=== PATIENT | female | born 1955 | race Caucasian/White ===

== ENCOUNTER 2020-07-06 06:45 | Inpatient (IN) | payer MEDICARE, BC ==
[~2020-07-06] VITALS: Ht 157.5 cm; Wt 73.0 kg
[2020-07-21] MEDS ORDERED: SUCRALFATE1 GM PO (14:50)
[2020-07-21] MEDS ORDERED: FENOFIBRATE160 MG PO (14:51)
[2020-07-21] MEDS ORDERED: PANTOPRAZOLE SO40 MG (14:51)
[2020-07-21] MEDS ORDERED: FLONASE ALLERG9.9 ML NAS (14:52)
[2020-07-21] MEDS ORDERED: FISH OIL 1,0001 EAC2 PO (14:52)
[2020-07-21] MEDS ORDERED: PANTOPRAZOLE SO40 MG PO (14:53)
--- NOTE | 2020-08-03 09:30 | NUR ---
08/03/20 0930 Jinny Gardiner 0920-PATIENT ARRIVED TO PACU ON 6L MASK AWAKE DENIES PAIN OR NAUSEA. RR EVEN. PATIENT UNABLE TO MOVE TOES. SPINAL LEVEL OF T10. CHURCHILL CATHETER DRAINING CLEAR URINE. IVF INFUSING. 0928-PATIENT PLACED ON RA. DENIES PAIN OR NAUSEA. CLOSES EYES RR EVEN.
--- NOTE | 2020-08-03 10:27 | NUR ---
Patient to floor from surgery. Patient arrived alert and oriented x4. Vital signs stable, cpox intact. Patient denies pain at this time. Spinal resolving; level T10 at this time. Bed alarm intact. Hob elevated. Patient oriented to room and call light. Quijano intact, patent with clear dilute urine. Kaylan pad in place; scant yoni blood noted to pad. Small portion of vaginal packing noted. Patient reminded of spinal and safety measures. No needs at this time. Call light wihtin reach. at bedside.
--- NOTE | 2020-08-03 11:39 | NUR ---
Patient remains alert and oriented x4. Patient denies pain. Vaginal packing and stacy pad unchanged with no new drainage noted. Spinal resolving at L2. SCD;s intact. Patient reports she is doing well at this time. Lunch ordered. Quijano intact, patent with clear yellow urine noted. Encouraged patient to drink fluids. No needs at this time. Bed alarm intact.
--- NOTE | 2020-08-03 12:50 | NUR ---
Patient reports doing well. Patient denies pain. Lunch tolerated well. Quijano intact, patent with clear yellow urine. Vaginal packing intact, stacy pad unchanged with scant yoni blood noted. Spinal resolving still; at L3 level. No needs. IV patent. Bed alarm intact.
--- NOTE | 2020-08-03 13:33 | NUR ---
PATIENT IS LAYING IN BED. FRESH WATER GIVEN. VITALS AND I&OS ARE DONE AND DOCUMENTED. CALL LIGHT IS IN REACH. NO FURTHER NEEDS AT THIS TIME.
--- NOTE | 2020-08-03 14:19 | NUR ---
Patient resting in bed, a&ox4. Patient denies pain. Spinal resolving still; at L4 level. Quijano intact, patent and clear yellow urine. Vaginal packing intact, stacy pad unchanged-scant yoni red blood noted. Patient tolerated lunch well. Cpox intact, 97% on room air. No needs. Call light within reach.
--- NOTE | 2020-08-03 15:39 | NUR ---
In to check on patient to see if she is ready to walk. Pt reports her spinal is still resolving. Patient reports numbness in bottom of feet still. Told patient I will return in a while to check on her. Bed alarm remains intact.
--- NOTE | 2020-08-03 18:28 | NUR ---
Patient walked in hallway with SBA. Patient tolerated well. Back to bed. No needs at this time.
--- NOTE | 2020-08-03 18:32 | NUR ---
PATIENT IS SITTING UP IN BED WATCHING TV. FRESH WATER GIVEN. VITALS AND I&OS ARE DONE AND DOCUMENTED. CALL LIGHT IS IN REACH. NO FURTHER ASSISTANCE AT THIS TIME.
--- NOTE | 2020-08-03 20:26 | NUR ---
CALL LIGHT ANSWERED. pt C/O 08/27 PAIN IN MCKENNA AREA "IT'S WAKING UP". PRN PAIN MEDICATION ADMINISTERED WITH CRACKERS, ICE WATER REFILLED. SIDE EFFECTS AND MEDICATION INFORMATION PROVIDED. CALL LIGHT WITHIN REACH.
--- NOTE | 2020-08-03 21:11 | NUR ---
Pt awake, moves and repositions self in bed,. On room air, lungs clear bilat, abd distended, f/c patent, draining large amounts of urine. Scant amount of vaginal red drainage, vag packing in place. scds in place. IVF infusiing. c/o abd pain, medicated with scheduled Motrin. tolerating liquids and diet well, no emeis, pleasant and coop. had many questions, answered to her satisfaction. call light and fresh fluids at bedside, HOB elevated to her comfort
--- NOTE | 2020-08-04 00:24 | NUR ---
Awake, watching tv, no c/o pain, SCDS repositioned at her requets, f/c patent. IVF infusing
--- NOTE | 2020-08-04 05:24 | NUR ---
F/C DC'D AT 0515, TIP INTACT, PT AWARE OF POST VOID RESIDUALS CHECKS
--- NOTE | 2020-08-04 05:46 | NUR ---
Pt awakes easily, vag pack still in place, scant amount of red vaginal drainage present. f/c dc'd. pt aware of post void residuals checks. stated understanding. IS at bedside, scds off at her requests at this time. IVF infusing. walked hallways x1 this shift, down to short corridor and back. Tolerated well, tolerataing diet and fluids, has been medicated with 1 norco and 2 scheduled motrins with good pain relief. uses call light approriately
--- NOTE | 2020-08-04 07:25 | NUR ---
THIS CHANNEL ROUGHER NOTIFIED BY LIONEL OLVERA THAT SHE TOOK PATIENT TO THE BATHROOM. WENT TO CHECKED. PATIENT STATED SHE CHANGED UNDERWEAR AND PAD. STATED THAT SHE DID NOT LIKE THE FEELING AND SHE TOOK OFF THE PACKING. LIONEL BLUE AND LIONEL OLVERA NOTIFIED REGARDING THE PACKING. PATIENT IS BACK IN BED.
--- NOTE | 2020-08-04 07:34 | NUR ---
REPORT RECEIVED FROM LIONEL BLUE. PT UP TO RESTROOM AND WAS ABLE TO VOID 50ML YELLOW URINE. PT REMOVED VAGINAL PACKING STATING "I JUST FELT LIKE I HAD TO POOP SO I TOOK IT OUT." FRESH MCKENNA PAD IN PLACE. EDUCATION DONE WITH PT. PT VERBALIZES UNDERSTANDING. STAND BY ASSIST BACK TO BED. PREVIOUS MCKENNA PAD NOTED TO BED 20% SATURATED WITH RED DRAINAGE. PT DENIES PAIN AND NAUSEA. PT DENIES ADDITIONAL REQUESTS OR COMPALINTS. CALL LIGHT WITHIN REACH.
--- NOTE | 2020-08-04 08:25 | NUR ---
DR. LOPEZ IS AWARE THAT PATIENT PULLED HER OWN VAG PACKING.
--- NOTE | 2020-08-04 09:12 | NUR ---
MORNING ASSESSMENT AND MEDICATION DUE. PT REPORTS MD WAS TO BEDSIDE FOR ROUNDS. PT HAS YET TO HAVE FULL VOID, EDUCATION DONE WITH PT REGARDING NEED FOR VOID PRIOR TO DISCHARGE. PT VERBALIZES UNDERSTANDING. PT DENIES PAIN AND NAUSEA "EXCPET IT HURTS WHEN I GET UP FAST, BUT THAT WAS WHEN THE CATHETER WAS IN ME." IV SALINE LOCKED PER MD ORDER, ALCOHOL CAPS APPLIED. LUNG SOUNDS CLEAR. PT DEMONSTRATES USE OF I.S. REACHING 1250ML. SPINAL RESOLVED. ABDOMENT NOTED TO BE MILDY DISTENDED. PT CONFIRMS STATING "MY STOMACH IS SWOLLEN." MCKENNA PAD NOTED TO BE 10% SATURATED WITH RED DRAINAGE AT THIS TIME. ABDOMEN IS NOT TENDER TO TOUCH. PT UP TO RESTROOM WITH STAND BY ASSIST. PT VOIDS 250ML OF LIGHT PINK URINE. POST RESIDUAL BLADDER SCAN SHOWS 84ML LEFT IN BLADDER AFTER VOID. PT UP FOR SHOWER WITH ASSISTANCE FROM SAW BOSS. PT DENIES ADDITIONAL REQUESTS OR COMPLAINTS. CALL LIGHT WITHIN REACH. SAW BOSS AT BEDSIDE.
--- NOTE | 2020-08-04 10:08 | NUR ---
PT FINISHED WITH SHOWER. PT BACK TO BED AND RESTING WITH HEAD OF BED ELEVATED. PT DENIES PAIN AND NAUSEA AT THIS TIME. PT REPORTS SHE IS PASSING GAS. PT DENIES REQUESTS OR COMPLAINTS AT THIS TIME. CALL LIGHT WITHIN REACH. ICE WATER REFILLED. BED RAILS UP.
--- NOTE | 2020-08-04 12:42 | NUR ---
NOON ASSESSMENT DUE. ABDON, RN STATES SHE GOT PT UP TO RESTROOM AND PT HAS SMALL VOID WITH 600+ ML POST RESIDUAL NOTED IN BLADDER SCAN. PT REPORTS 3/10 ACHING PAIN AND REQUESTS IBUPROFEN. AFTERNOON MOTRIN GIVEN. PT ENCORUAGED TO VOID AGAIN. SBA UP TO RESTROOM AND VOIDS 300ML. POST RESIDUAL BLADDER SCAN SHOWS 474ML. ABDOMEN APPEARS TO HAVE INCREASED DISTENTION, NOW MODERATLY DISTENDED. PT PASSING LARGE AMOUNTS OF GAS. ABDOMEN CONTINUES TO BE SOFT TO TOUCH. MCKENNA PAD MOSTLY DRY. SCANT AMOUNT OF RED DRAINAGE NOTED ON MCKENNA PAD. PT PERFORMS SELF MCKENNA CARE. PT EATING LUNCH. ICE WATER REFILLED. CALL LIGHT WITHIN REACH. PTS AT BEDSIDE. BED RAILS UP. CALL LIGHT WIHTIN REACH.
--- NOTE | 2020-08-04 12:54 | NUR ---
DR. LOPEZ CALLED WITH UPDATE. NEW ORDRES GIVEN TO STRAIGHT CATH PT NOW AND PLACE PT ON 1600ML PO FLUID RESTRICTION. PO FLUIDS REMOVED FROM PTS BEDSIDE AND EDUCATION DONE WITH PT REGARDING FLUID RESTRICITON. PT VERBALIZES UNDERSTANDING.
--- NOTE | 2020-08-04 13:00 | NUR ---
Pt states she lives in [place] with her spouse Tobin. They live in a 1 story home with 1 step. They are retired, pt states they are active. She denies financial issues. Plans on dc to home with spouse. Denies any needs and denies any use of DME.
--- NOTE | 2020-08-04 13:26 | NUR ---
STRAIGHT CATH PERFORMED PER PROTOCOL BY ROGER FLOWERS. 700ML CLEAR YELLOW URINE OBTAINED FROM STRIGHT CATH. PER CARE PERFORMED. FRESH MCKENNA PAD AND UNDERWARE ON. PT RESTING WITH HEAD OF BED ELEVATED TO 25 DEGREES. FLUID RESTRICTION EXPLAINED TO PT AND PT VERBALIZES UNDERSTANDING. PT DENIES ADDITIONAL REQUESTS OR COMPLAINTS AT THIS TIME. CALL LIGHT WITHIN REACH.
--- NOTE | 2020-08-04 14:14 | NUR ---
THIS RN TO ROOM TO CHECK ON PT. PT REPORTS PAIN IS "mUCH BETTER AFTER THAT CATHETER." PT NOW REPORTS 1/10 PAIN THAT IS "MUCH BETTER." PT DENIES ADDITIONAL REQUESTS OR COMPLAINTS. CALL LIGHT WITHIN REACH. BED RAILS UP.
--- NOTE | 2020-08-04 14:31 | NUR ---
MED REC COMPLETE
--- NOTE | 2020-08-04 14:48 | NUR ---
THIS RN TO ROOM TO CHECK ON PT. PT RESTING ON BACK IN BED WITH EYES CLOSED. RESPIRATIONS EVEN AND UNALBORED. HEAD OF BED ELEVATED TO 30 DEGREES. BED RAILS UP. CALL LIGHT WITHIN REACH. PT ALLOWED TO REST.
--- NOTE | 2020-08-04 15:53 | NUR ---
AFTERNOON ASSESSMENT DUE. THIS RN TO ROOM. PT HAS ONLY VOIDED 50ML IN THE LAST TWO HOURS. PT UP TO TRY TO VOID. UNABLE TO DO SO. BLADDER SCAN SHOWS 664ML. DR. LOPEZ CALLED AND UPDATED. ORDERS GIVEN TO PLACE CHURCHILL CATHETER. CHURCHILL CATHETER PLACED PER PROTOCOL WITH 650ML OBTAINED FROM BLADDER WITH CATHETER PLACEMENT. PT REPORTS "OH THAT FEELS SO MUCH BETTER." ABDOMEN NOTABLY LESS TIGHT AFTER CATHETER PLACEMENT. PT DENIES PAIN AND NAUSEA WHEN ASKED IF SHE IS HAVING PAIN PT STATES "NO, I'M HAVING RELEIF." IV SALINE LOCKED. ABDOMEN REMAINS MILDLY DISTENDED. BOWEL TONES ACTIVE. PT REPORTS SHE IS PASSING "A LOT OF GAS." VERY SCANT RED DRAINAGE NOTED ON MCKENNA PAD. PT STATES SHE PREFERS TO LEAVE MCKENNA PAD OFF FOR NOW "BECAUSE THE CATHETER IS IN." CHUX IN PLACE. PT DEMONSTRATES USE OF I.S. REACHING 1000ML. PT DENIES ADDITIONAL REQUESTS OR COMPLAINTS. CALL LIGHT WITHIN REACH. BED RAILS UP.
--- NOTE | 2020-08-04 16:44 | NUR ---
PT POST OP DAY ONE AFTER VAGINAL HYSTERECTOMY. PT UP WITH STAND BY ASSIST TO RESTROOM AND TO AMBULATE THIS SHIFT. PT TOLERATING REGULAR DIET THIS SHIFT. TROUBLES WITH URINARY RETENTION THIS SHIFT, MULTIPLE POST VOID RESIDULE BLADDER SCANS WITH HIGH JACLYN MD AWARE. STRAIGHT CATH FOLLOWED BY CHURCHILL CATHETER PLACEMENT PERFORMED. 1600ML FLUID RESTRICITON STARTED, PT TOLERATING WELL. MINIMAL VAGINAL BLEEDING THIS SHIFT. MCKENNA PAD IN PLACE AT TIMES. CHURCHILL CATHETER QUANTITY SUFFICIENT. SCHEDULED PAIN MEDICAITON GIVEN, PRN MEDICAITON NOT NEEDED SO FAR THIS SHIFT. PT UESE CALL LIGHT APPROPRIATLY.
--- NOTE | 2020-08-04 17:24 | NUR ---
THIS RN TO ROOM TO CHECK ON PT. CHURCHILL CATHETER CONTINUES TO DRAIN TO GRAVITY. PT DENIES PAIN AND NAUSEA. NO DRAINAGE NOTED ON CHUX PAD. PT ANTICIPATING DINNER. NO ADDITIONAL REQUESTS OR COMPLAINTS. CALL LIGHT WITHIN REACH. BED RAILS UP.
--- NOTE | 2020-08-04 17:58 | NUR ---
THIS RN TO ROOM WITH DR. LOPEZ FOR ROUNDS. PT AND UPDATED ON PLAN OF CARE. PT AND VERBALIZE UNDERSTANDING AND STATE THEIR QUESTIONS HAVE BEEN ANSWERED. NO ADDITIONAL REQUESTS OR COMPLAINTS. PT CONTINUES TO REPORT SHE "FEELS MUCH BETTER" NOW THAT THE CATHETER IS IN PLACE. VERBAL ORDERS FROM DR. LOPEZ TO REMOVE CATHETER IN THE MORNING. ORDRES PLACED.
--- NOTE | 2020-08-04 19:15 | NUR ---
SHIFT REPORT RECEIVED FROM MAY FLOWERS. PT RESTING IN BED, WATCHING TV. DENIES PAIN. NO NEEDS AT THIS TIME. CALL LIGHT IN REACH.
--- NOTE | 2020-08-04 21:51 | NUR ---
IN TO GETR PT VITALS, ICE WATER REFILLED TO 200 CARLOS PER 1600 ML FLUID RESTRICTION CHURCHILL CARE DONE AND CHURCHILL EMPTIED
--- NOTE | 2020-08-04 22:44 | NUR ---
ASSESSMENT COMPLETED. SCHEDULED MEDS PROVIDED. PT ABD PAIN 5/10, PRN PAIN MED PROVIDED. ABD FIRM, TENDER, MODERATELY DISTENDED, BOWEL TONES ACTIVE. CMS INTACT. IV WNL, CDI, FLUSHED WELL. CHURCHILL WNL. PT TOLERATING FLUID RESTRICTION WELL. LUNGS CLEAR, HEART TONES REGULAR. GCS 15, A&O X4.NO OTHER NEEDS AT THIS TIME. CALL LIGHT IN REACH.
--- NOTE | 2020-08-05 02:08 | NUR ---
ASSESSMENT COMPLETED. PT STATES HER ABD DISTENTION AND PAIN HAS DECREASED. DENIES NEED FOR PAIN INTERVENTION. IV WNL. CHURCHILL WNL. NO OTHER NEEDS AT THIS TIME. CALL LIGHT IN REACH.
--- NOTE | 2020-08-05 02:09 | NUR ---
IN TO GET VITALS, NO FURTHER NEEDS
--- NOTE | 2020-08-05 04:12 | NUR ---
PT CALLED, BACK FROM TOILET, HAD CATH TUBING TANGLED, FIXED FOR PT, PT IN BED AT THIS TIME, NO FURTHER NEEDS, PT ALSO STATED SHE WAS 'PASSING LOTS OF GAS'
--- NOTE | 2020-08-05 06:44 | NUR ---
in to get vitals, pt up to change jes esposito pulled pabon cath, pt ambu in verdugo
--- NOTE | 2020-08-05 06:51 | NUR ---
SCHEDULED MED PROVIDED. CHURCHILL REMOVED, WNL. PT UP TO BR FOR MCKENNA CARE.
--- NOTE | 2020-08-05 07:16 | NUR ---
REPORT RECEIVED FROM LIONEL AMADOR. PT UP IN ROOM, WALKING AROUND. PT DENIES PAIN AND NAUESA AT THIS TIME. PT ENCOURAGED TO TRY TO USE RESTROOM EVERY HOUR NOW THAT THE CHURCHILL CATHETER IS OUT. PT VERBALIZES UNDERSTANDING. PT ENCOURAGED TO AMBULATE WELL, PT STATES SHE PLANS TO WALK " MUCH I CAN." PT DENIES ADDITIONAL REQUESTS OR COMPLAINTS. WATER REFILLED PER FLUID RESTRICTION. CALL LIGHT WITHIN REACH. BED RAILS UP.
--- NOTE | 2020-08-05 08:22 | NUR ---
MORNING ASSESSMENT AND MEDICAITON DUE. PT UP PACING IN ROOM. PT REPORTS 6/10 PAIN IN VAGINAL AREA AND "A LOT OF GAS." PT STATES "I JUST CAN'T SIT DOWN, IT HURTS TOO MUCH." SEE MAR FOR MEDICATION GIVEN. PT UP TO RESTROOM TO VOID. PT VOIDS 40ML CLEAR YELLOW URINE. 158ML NOTED IN POST VOID BLADDER SCAN. WILL CONTINUE TO MONITOR. PT ENCORUAGED TO CONTINUE TO TRY TO VOID EVERY HOUR. ASSESSMENT DONE: PT PACING IN ROOM, STEADY ON FEET. PT REPORTS WALKING HELPS WITH THE GAS. PT REPORTS PASSING "A LOT" OF GAS. PT TALKING NON STOP. THERAPUIC COMMUNICATION DONE. CARES EXPLAINED. PT HAS PLACED NEW MCKENNA PAD, SCANT AMOUNT OF RED DRAINGE NOTED ON MCKENNA PAD. PT DEMONSTRATES USE OF I.S. REACHIGN 1750. PT TOLERATING FLUID RESTRICTION WELL. MEDICATIONS GIVEN. NO ADDITIONAL REQUESTS OR COMPLAINTS. CALL LIGHT WITHIN REACH.
--- NOTE | 2020-08-05 09:20 | NUR ---
THIS RN TO ROOM TO CHECK ON PT. PT RESTING IN BED AND REPORTS SHE FEELS "MUCH CALMER." PT REPORTS VAGINAL ACHING PAIN IS NOW 3/10 AND "MUCH BETTER." PT REPORTS SHE PLANS TO TRY TO VOID AND WALK AT 0930. PT ENCOURAGED TO CALL NURSING STAFF AT AT TIME. PT DENIES ADDITIONAL REQUESTS OR COMPLAINTS AT THIS TIME. CALL LIGHT WITHIN REACH. BED RAILS UP.
--- NOTE | 2020-08-05 09:37 | NUR ---
PT UP TO AMBULATE X2 LAPS ARROUND UNIT. PT STEADY ON FEET, NO ASSISTANCE NEEDED. PT REPORTS ACHING VAGINAL AND "COLON" PAIN" NOW RATED AT 3/10. PT DENIES NAUSEA. PT REPORTS SHE DOES NOT FEEL THE NEED TO VOID AT THIS TIME. PT UP TO RESTROOM TO TRY TO VOID, UNSUCESSFUL. WILL TRY AGAIN IN AN HOUR. PT DENIES ADDITIONAL REQUESTS OR COMPLAINTS. CALL LIGHT WITHIN REACH.
--- NOTE | 2020-08-05 10:32 | NUR ---
THIS RN TO ROOM TO CHECK ON PT. PT RESTING IN BED ON RIGHT SIDE. PT ENCOURAGED TO GET UP TO TRY TO VOID. STAND BY ASSIST UP TO RESTROOM, PT STEADY ON FEET. PT UNABLE TO VOID. BLADD SCAN = 334ML. PT UP TO AMBULATE IN ALEJO X 2 LAPS, INDEPENDANT, STEADY ON FEET, NO ASSISTANCE NEEDED. LUNCH ORDER PLACED. NO ADDITIONAL REQUESTS OR COMPLAINTS AT THIS TIME. CALL LIGHT WITHIN REACH.
--- NOTE | 2020-08-05 11:45 | NUR ---
THIS RN TO ROOM TO CHECK ON PT. STAND BY ASSIST UP TO AMBULATE X2 LAPS IN ALEJO. PT UP TO RESTROOM. ABLE TO VOID 100ML CLEAR YELLOW URINE. POST VOID BLADDER SCAN SHOWS 427ML. DR. LOPEZ CALLED AND UPDATED. ORDERS TO PLACE CHURCHILL CATHETER. ORDRES ENTERED.
--- NOTE | 2020-08-05 12:16 | NUR ---
CHURCHILL CATHETER PLACED PER PROTOCOL. 525ML OF CLEAR YELLOW URINE NOTED. PT REPORTS FEELING "BETTER" AFTER CATHETER PLACEMENT BUT CONTINUES TO REPORTS 5/10 "PRESURE AND ACHING" PAIN IN MID ABDOMEN. ABDOMEN MILDY DISTENDED AND TENDER TO TOUCH. PT REPORTS FEELING "DIZZY WITH THE PAIN." SEE MAR FOR MEDICATION GIVEN. PT POSITONED IN BED FOR COMFORT. BED RAILS UP. CALL LIGHT WITHIN REACH.
[2020-08-05] MEDS ORDERED: IBU800 MG PO (13:17)
[2020-08-05] MEDS ORDERED: HYDROCODON-ACE1 EA10 PO (13:18)
[2020-08-05] MEDS ORDERED: KONDREMUL2.5 ML/5 M PO (13:19)
[2020-08-05] MEDS ORDERED: SENOKOT-S TABL1 EACH PO (13:20)
--- NOTE | 2020-08-05 13:30 | NUR ---
THIS RN TO BEDSIDE WITH DR. LOPEZ FOR ROUNDS. PT UPDATED ON PLAN OF CARE. PT ANTICIPATING DISCHARGE. PT REPORTS 3/10 INTERMITTANT PAIN "WHEN I MOVE AROUND." AND REPORTS GENERALLY FEELING MUCH BETTER WITH CATHETER IN PLACE. PTS AT BEDSIDE. NO ADDITIONAL REQUESTS OR COMPLAINTS. CALL LIGHT WITHIN REACH.
--- NOTE | 2020-08-05 14:45 | NUR ---
PT READY FOR DISCHARGE. VITALS SIGNS STABLE. IV DC'D PER PROTOCOL. GAUZE AND COBAN APPLIED. CATHETER LEG BAG ATTACHED. EDUCATION DONE WITH PT REGARDING EMPTING CATHETER BAG, CHURCHILL CATHTER CARE, MCKENNA CARE, AND ATTACHING LEG BAG TO LEG. PT DEMONSTRATES UNDERSTANDING OF ALL OF THIS EDUCATION. DISCHRAGE INSTRUCTIONS REVEIWED WITH PT. PT VERBALIZES UNDERSTANDING OF INSTRUCTIONS, MEDIATIONS, AND FOLLOW UP APPOINTMENT. LIFTING RESTRICTION EDUCATION DONE WITH PT. PT VERBALIZES UNDERSTANDING. PT REPORTS 3/10 ACHING PAIN IN VAGINAL AREA "WHEN I MOVE AROUND." MOTRIN DUE, GIVEN (SEE MAR). PT TRANSFERES SELF TO WHEELCHAIR. PT WHEELED TO FRONT OF HOSPITAL TO MEET , NO ADDITIONAL REQUESTS, QUESTIONS, OR CONCERNS.
--- NOTE | 2020-08-06 16:30 | OR ---
[facility] [address] [place], [place] [address] Signed DATE OF OPERATION: 08/03/2020 SURGEON: Jacy Cline MD BELT WORKER: Nabor Burton MD. PREOPERATIVE DIAGNOSIS: Uterovaginal prolapse. POSTOPERATIVE DIAGNOSIS: Uterovaginal prolapse. PROCEDURE: Total vaginal hysterectomy, rectocele repair. ANESTHESIA: Spinal with IV sedation. ESTIMATED BLOOD LOSS: 50 mL. DRAINS: Quijano catheter. PACKS: Vaginal. INDICATIONS AND FINDINGS: The patient is a 65-year-old female, 2, para 2, who has been having worsening pelvic pressure and was found to have significant uterovaginal prolapse. At the time of surgery, she had moderate uterine prolapse. The cervix was quite large, though the uterus itself was small. The tubes and ovaries could not be seen. After completion of the hysterectomy, there was no significant cystocele remaining, though she had a grade 2 to start with. She still had a grade 2-3 rectocele. DESCRIPTION OF PROCEDURE: The patient was prepped and draped in the dorsal lithotomy position. A weighted speculum was placed and the anterior and posterior lips of the cervix were grasped with single-tooth tenaculum and injected with 1% lidocaine with 1:200,000 epi to a Electronically Signed By: JACY CLINE MD 08/06/20 1630 PATIENT NAME: FELY CESPEDES OPERATIVE REPORT DATE OF : 55 REPORT #: [id number] PHYSICIAN: JACY CLINE MD PCP: MARIETTA ESTRADA PA-C REPORT IS CONFIDENTIAL AND NOT TO BE RELEASED WITHOUT AUTHORIZATION [facility] [address] [place], [place] [address] Signed volume of 10 mL. The posterior cul-de-sac was entered sharply. The [place]-Neck speculum was placed into the posterior cul-de-sac. The uterosacral ligaments were grasped bilaterally, divided and suture ligated with 0 Vicryl. Following this, the vaginal mucosa was circumscribed sharply with a knife and further dissection done with the scissors. The anterior peritoneum was then entered. A bite was taken into the cardinal ligament and uterine vessel areas using the curved Z clamps taking care to incorporate the peritoneum both posteriorly and anteriorly. These were divided and suture ligated with 0 Vicryl. This was done bilaterally. The remaining broad ligament pedicles could then be clamped across and divided. This was followed by free tie of 0 Vicryl followed by suture ligature of 0 Vicryl. The pedicle on the patient's right had a small area which came out of the clamp and this was re-clamped with the remaining pedicle and the entire thing was re-tied and re-sutured. Following this, the vaginal cuff was examined. There was a small amount of bleeding near the patient's right uterine vessel area and a vjsucx-cw-yxixk suture of 0 Vicryl was placed. Following this, good hemostasis was noted. The peritoneum was identified and was closed with a [id number]-lj-operx suture of 0 Vicryl. The cuff itself was closed with a running locking suture of 0 Vicryl beginning at the right angle to the left. Following this, there was no evidence of remaining cystocele. The rectocele did however remain. The rectocele repair was then begun. The perineum was very short. A superficial triangle of tissue was removed from the upper perineum with a knife. The vaginal mucosa was then serially undermined and divided in the midline to the apex of the vagina. A combination of blunt and sharp dissection was done to separate the vaginal mucosa from the underlying tissue. There was quite a bit of scarring especially low on the vaginal wall consistent with prior repairs. There was no evidence of an enterocele on rectal examination, though the rectal wall was extremely thin. There was no evidence of any perirectal fascia remaining. A traditional rectocele repair was begun plicating the levator muscles in the midline. This was done with interrupted sutures of 0 Vicryl. This was begun at the apex of the vagina and run down near the introitus. Following placement of all of the sutures, a rectal examination was done and there was no evidence of any compromise of the rectal lumen. The perineal body was then recreated by undermining some of the perineal and vaginal tissue. Interrupted sutures of 0 Vicryl were placed reapproximating the transverse perinei muscles. The posterior fourchette was recreated with interrupted sutures of 2-0 Vicryl. The skin of the perineum was reapproximated with interrupted sutures of 2-0 Vicryl. Additional qwjmar-uj-hjyilv were required in the low midportion of the vaginal repair due to ongoing bleeding. Following this, there was no evidence of any ongoing bleeding. There was good length and caliber to the vagina. The vaginal canal was then packed with Premarin-coated gauze. All sponge and needle counts were correct. She tolerated the procedure well and was taken to the recovery room in good condition. Electronically Signed By: JACY CLINE MD 08/06/20 5148 PATIENT NAME: FELY CESPEDES OPERATIVE REPORT DATE OF : 55 REPORT #: [id number] PHYSICIAN: JACY CLINE MD PCP: MARIETTA ESTRADA PA-C REPORT IS CONFIDENTIAL AND NOT TO BE RELEASED WITHOUT AUTHORIZATION [address] [place], [place] [address] Signed MD KIMANI Chan/KDL /[id number] cc: Nabor Burton MD Copies: NABOR BURTON MD ~ Electronically Signed By: JACY CLINE MD 08/06/20 1630 PATIENT NAME: FELY CESPEDES OPERATIVE REPORT DATE OF : 55 REPORT #: [id number] PHYSICIAN: JACY CLINE MD PCP: MARIETTA ESTRADA PA-C REPORT IS CONFIDENTIAL AND NOT TO BE RELEASED WITHOUT AUTHORIZATION
== END 2020-08-05 15:00 | disposition home or self-care (01) | DRG 743 ==
LOC: DSVR 08-03 06:00 → MS 08-03 06:00
PROVIDERS: ADMIT Obstetrics & Gynecology; ATTEND Obstetrics & Gynecology
PROC: 0UT97ZZ Resection of Uterus, Via Natural or Artificial Opening (ICD-10-PCS; principal; 2020-08-03 06:45)
PROC: 0JQC0ZZ Repair Pelvic Region Subcutaneous Tissue and Fascia, Open Approach (ICD-10-PCS; 2020-08-03 06:45)
DX: N81.2 Incomplete uterovaginal prolapse (principal); N31.2 Flaccid neuropathic bladder, not elsewhere classified; E78.5 Hyperlipidemia, unspecified; E78.1 Pure hyperglyceridemia; Z79.899 Other long term (current) drug therapy
CPT/HCPCS: 00944; 36415; 51798; 80048; 85025; J0694; J1100; J1644; J2001; J2250; J2274; J2405; J2704; J2765; J7121